=== PATIENT | male | born 1985 | race Caucasian/White ===

== ENCOUNTER → 2017-02-10 | Outpatient (REF) | LOC: ZLAB.WCH 08:55 | DX: Z01.89 Encounter for other specified special examinations (principal) ==

== ENCOUNTER 2019-01-26 08:11 | Emergency (ER) | payer OTHER ==
[~2019-01-26] VITALS: Ht 165.1 cm; Wt 73.6 kg
[2019-01-26 08:16] VITALS: TEMP 99.9
[2019-01-26] MEDS ORDERED: AMOXICILLIN 8751 TAB PO (09:07)
[2019-01-26 09:20] VITALS: BP 117/75; PULSE 91
== END 2019-01-26 09:21 | disposition home or self-care (01) ==
LOC: COL.ER 08:11
DX: J02.0 Streptococcal pharyngitis (principal)

== ENCOUNTER 2019-05-18 14:30 | Outpatient (RCR) | payer OTHER ==
[~2019-05-18 14:30] MED LIST: AMOXICILLIN 8751 TAB PO
== END 2019-06-04 16:54 | disposition home or self-care (01) ==
LOC: WSC 14:30
DX: M25.562 Pain in left knee (principal); X50.1XXA Overexertion from prolonged static or awkward postures, initial encounter; Y92.59 Other trade areas as the place of occurrence of the external cause; Y99.0 Civilian activity done for income or pay
CPT/HCPCS: G0283-GP

== ENCOUNTER 2020-07-31 06:26 | Emergency (ER) | payer SELFPAY ==
[~2020-07-31] VITALS: Ht 165.1 cm; Wt 70.5 kg
[2020-07-31 06:32] VITALS: BP 125/83
[2020-07-31 06:46] VITALS: TEMP 98.3
[2020-07-31 07:03] LABS: STREP SCREEN NEGATIVE
[2020-07-31] MEDS ORDERED: AMOXICILLIN 8751 TAB PO (07:21)
[2020-07-31 08:35] VITALS: PULSE 72
== END 2020-07-31 08:37 | disposition home or self-care (01) ==
LOC: COL.ER 06:26
PROVIDERS: Emergency Medicine
DX: J02.9 Acute pharyngitis, unspecified (principal); Z20.828 Contact with and (suspected) exposure to other viral communicable diseases
CPT/HCPCS: J8540

== ENCOUNTER 2021-07-10 20:57 | Emergency (ER) | payer OTHER ==
[~2021-07-10] VITALS: Ht 165.1 cm; Wt 75.0 kg
[2021-07-10 21:09] VITALS: TEMP 98.8
[2021-07-10 22:54] LABS: BASO % 0.3 % (0.0-2.0); EOS # 0.2 K/mm3 (0.0-0.7); EOS % 2.4 % (0-4.0); GRAN # 4.2 K/mm3 (1.4-6.5); GRAN % 63.5 % (42.2-75.2); HEMATOCRIT 44.4 % (42.0-52.0); LYMPH # 1.3 K/mm3 (1.2-3.4); LYMPH % 18.9 % (20.0-51.0); MEAN CELL VOLUME 87 fl (80.0-100.0); MEAN CORPUSCULAR HEMOGLOBIN 30 pg (27.0-31.0); MEAN CORPUSCULAR HGB CONC 34 g/dl (33.0-37.0); MEAN PLATELET VOLUME 10.3 fl (7.4-10.4); MONO % 14.7 % (1.7-9.3); PLATELET COUNT 181 K/mm3 (130-400); RED BLOOD COUNT 5.08 M/mm3 (4.20-5.60); REDCELL DISTRIBUTION WIDTH-CV 12.6 % (11.5-14.5)
[2021-07-10 23:08] LABS: ALBUMIN 4.2 gm/dL (3.5-5.0); BILIRUBIN,TOTAL 0.3 mg/dL (0.2-1.2); CALCIUM 9.5 mg/dL (8.4-10.2); CREATININE, serum 1.18 mg/dL (0.72-1.25); POTASSIUM 3.8 mmol/L (3.5-4.5); TOTAL PROTEIN 7.4 gm/dL (6.2-8.1)
[2021-07-10] MEDS ORDERED: DOXYCYCLINE 10100 MG PO (23:54)
[2021-07-11 00:30] VITALS: BP 122/85; PULSE 54
== END 2021-07-11 00:40 | disposition home or self-care (01) ==
LOC: COL.ER 20:57
PROVIDERS: Emergency Medicine
DX: U07.1 COVID-19 (principal); Z88.5 Allergy status to narcotic agent
CPT/HCPCS: J1100; J1170; J1885; J7030

== ENCOUNTER 2021-07-15 22:41 | Emergency (ER) | payer OTHER ==
[~2021-07-15] VITALS: Ht 165.1 cm; Wt 75.0 kg
[~2021-07-15 22:41] MED LIST changes: +DOXYCYCLINE 10100 MG PO
[2021-07-16 01:39] VITALS: BP 110/85; PULSE 88; TEMP 99.6
== END 2021-07-16 01:43 | disposition home or self-care (01) ==
LOC: COL.ER 22:41
DX: U07.1 COVID-19 (principal); Z73.0 Burn-out